=== PATIENT | male | born 1970 | race Caucasian/White ===

== ENCOUNTER 2025-10-02 15:23 | Emergency (ER) | payer SELFPAY ==
[2025-10-02 15:47] VITALS: BP 146/94
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
[2025-10-02] MEDS: ADACEL 0.5 ML IM (19:13)
== END 2025-10-02 19:26 | disposition home or self-care (01) ==
LOC: EMR 15:23
PROVIDERS: EMERGENCY PHYSICIAN Emergency Medicine; FAMILY PHYSICIAN Nurse Practitioner Family
DX: S61.411A Laceration without foreign body of right hand, initial encounter (principal); V43.52XA Car driver injured in collision with other type car in traffic accident, initial encounter; Y92.410 Unspecified street and highway as the place of occurrence of the external cause; Z23 Encounter for immunization
CPT/HCPCS: 99284; 12001; 90471; 71046; 90715; 93005